=== PATIENT | female | born 1975 | race Caucasian/White ===

== ENCOUNTER → 2018-06-04 | Outpatient (CLI) | payer OTHER | LOC: RAD 11:32 | DX: M25.531 Pain in right wrist (principal); M79.601 Pain in right arm ==

== ENCOUNTER → 2019-12-25 | Outpatient (CLI) | payer OTHER | LOC: LAB 14:16 | PROVIDERS: ATTEND Family Medicine | DX: Z20.828 Contact with and (suspected) exposure to other viral communicable diseases (principal) ==